=== PATIENT | female | born 1950 | race Caucasian/White ===

== ENCOUNTER 2024-04-08 13:45 | Outpatient (RCR) | payer MEDICARE, SELFPAY | END 2024-06-03 11:57 | disposition home or self-care (01) | PROVIDERS: PCP Family Medicine; Visit Provider Family Medicine | DX: M54.9 Dorsalgia, unspecified (principal); Z51.89 Encounter for other specified aftercare | CPT/HCPCS: 97110; 97140; 97161 ==

== ENCOUNTER 2025-02-25 13:00 | Outpatient (RCR) | payer MEDICARE, SELFPAY | END 2025-03-22 12:43 | disposition home or self-care (01) | PROVIDERS: PCP Family Medicine; Visit Provider Family Medicine | DX: M25.571 Pain in right ankle and joints of right foot (principal); G89.29 Other chronic pain; M76.61 Achilles tendinitis, right leg; Z51.89 Encounter for other specified aftercare | CPT/HCPCS: 97110; 97112; 97162; 97530 ==

== ENCOUNTER 2025-07-07 13:09 | Emergency (ER) | payer MEDICARE, SELFPAY ==
--- OUTSIDE RECORDS SUMMARY | 2025-07-07 13:11 | XMS_ITS | Clinical Summary ---
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 0 03/20/20 11 Active ascorbic acid (VITAMIN C) 500 mg tablet Take 1 tablet by mouth once daily. 0 03/20/20 11 Active loratadine (CLARITIN) 10 mg tabletIndications :Allergic Take 1 tablet by mouth once daily. 0 04/18/20 13 Active cholecalciferol, Vitamin D3, (Vitamin D-3) 5,000 unit tab tablet Take 1 Tablet (5,000 units) by mouth once daily. 0 02/16/20 22 Active Naproxen Na-pseudoephedrin e (Aleve Cold and Sinus) 220-120 mg [id number]:A llergy, sequela TAKE 1 TABLET BY MOUTH TWICE DAILY NEEDED 180 Tablet 05/04/20 22 Active medication order composer 2 times daily if needed (diarrhea). Imodium 262 mg tablets 02/07/20 24 Active acetaminophen (TYLENOL) 325 mg tabletIndications :Abnormal uterine bleeding due to endometrial polyp,Status post hysteroscopy Take 1-2 Tablets (325-650 mg) by mouth every 4 hours if needed (mild pain). Max acetaminophen dose: 4000mg in 24 hrs. 09/14/20 24 Active atorvastatin (LIPITOR) 40 mg tabletIndications :Mixed hyperlipidemia Take 1 Tablet (40 mg) by mouth at bedtime. 90 Tablet 3 12/31/19 25 Active levothyroxine (SYNTHROID) 88 mcg tabletIndications :Acquired hypothyroidism Take 1 Tablet (88 mcg) by mouth once daily. 90 Tablet 12/31/19 25 Active memantine (NAMENDA) 10 mg tabletIndications :Mild cognitive impairment Take 1 Tablet (10 mg) by mouth two times daily. 180 Tablet 12/31/19 25 Active triamterene-hydro chlorothiazide, 37.5-25 mg, (MAXZIDE-25) 37.5-25 mg tabletIndications :Essential hypertension TAKE 1 TABLET BY MOUTH IN THE MORNING 90 Tablet 3 12/31/19 25 Active liothyronine 5 mcg tabletIndications :Major depressive disorder, recurrent, moderate (HC) TAKE 1 TABLET BY MOUTH IN THE MORNING & 1 TABLET AT 3:00/4:00 PM. 180 Tablet 3 01/19/20 25 Active sertraline 100 mg tabletIndications :Major depressive disorder, recurrent, moderate (HC) Take 1 Tablet (100 mg) by mouth once daily. 90 Tablet 3 02/27/20 25 Active sertraline 50 mg tabletIndications :Major depressive disorder, recurrent, moderate (HC) Take 1 Tablet (50 mg) by mouth once daily. Take with a 100 mg tablet for a total of 150 mg daily 90 Tablet 3 02/27/20 25 Active gabapentin 300 mg capsuleIndication s:RLS (restless legs syndrome) Take 2 Capsules (600 mg) by mouth at bedtime. 180 Capsule 2 04/02/20 25 Active fluticasone (50 mcg per actuation) nasal solution (FLONASE)Indicati ons:Allergy, subsequent encounter SHAKE LIQUID AND USE 1 TO 2 SPRAYS IN BOTH NOSTRILS DAILY 48 g 2 04/15/20 25 Active nystatin 100,000 unit/g ointmentIndicatio ns:Yeast infection Apply topically to affected area(s) two times daily. To the skin of the perineum from vagina to anus 30 g 1 04/16/20 25 Active montelukast (SINGULAIR) 10 mg tabletIndications :Allergy, subsequent encounter Take 1 tablet by mouth at bedtime 90 Tablet 05/21/20 25 Active glipiZIDE extended-release (GLUCOTROL XL) 10 mg Extended-Release tabletIndications :Controlled type 2 diabetes mellitus with complication, without long-term current use of insulin (HC) Take 1 tablet by mouth every day before a meal 90 Tablet 05/21/20 25 Active omeprazole (PRILOSEC) 20 mg Delayed-Release capsuleIndication s:Gastroesophagea l reflux disease without esophagitis Take 1 Capsule (20 mg) by mouth once daily before a meal. 90 Capsule 1 06/15/20 25 Active omeprazole (PRILOSEC) 20 mg Delayed-Release capsuleIndication s:Gastroesophagea l reflux disease without esophagitis TAKE 1 CAPSULE BY MOUTH ONCE DAILY BEFORE A MEAL 90 Capsule 3 08/13/20 24 025 Discontin ued(*Avai lability/ Formulary change/Co st of medicatio n) Active Problems Problem Noted Date Diagnosed Date Status post hysteroscopy 08/202409/14/2024 Allergies 04/13/2024 Type 2 diabetes mellitus wit h other specified complication, without long-term current use of insulin 12/24/2023 Obesity, morbid 04/12/2023 Hoarding disorder 03/25/2023 Major neurocognitive disorde r possibly due to Alzheimer disease, without behavioral disturbance 03/25/2023 Major depressive disorder, recurrent, moderate 1 11/11/2021 Unspecified hypothyroidism 09/16/2009 Unspecified essential hypertension 11/12/2007 Mixed hyperlipidemia 11/12/2007 Esophageal reflux 11/12/2007 Resolved Problems Problem Noted Date Diagnosed Date Resolved Date Abnormal uterine bleeding du e to endometrial polyp 09/14/2024 12/30/2024 Thickened endometrium 07/29/20242024 Vaginitis 12/18/2023 12/30/2024 Acute urinary tract infection 11/25/2023 12/30/2024 Strain of right trapezius muscle 11/10/2023 12/30/2024 Personality disorder, unspecified 10/03/2018 08/13/2024 Recurrent depression 06/06/2018 022 Controlled type 2 diabetes m nicholitus with complication, without long-term current use of insulin 08/30/2016 05/07/2024 Morbid obesity due to excess calories 08/30/2016 10/06/2020 Major depressive disorder, r ecurrent episode, unspecified 03/29/2009 12/20/2011 Obesity, unspecified 11/12/2007 024 Nonspecific abnormal results of thyroid function study 11/12/2007 09/16/2009 DIABETES 09/11/2002 08/30/2016 Major depressive disorder, r ecurrent episode, moderate 06/06/2018 Encounters Date Type Department Care Team Description 07/07/2025 Nurse Triage [facility] [address] [place] [address] Yunior Martin MD Dizzy (Complaining of dizziness this am but no dizziness now) 07/07/2025 Travel 06/22/2025 Telephone [facility] [address] [place] [address] Yunior Martin MD Lab (Lab orders needed) 06/14/2025 Refill [facility] [address] [place] [address] Yunior Martin MD Refill Request (Omeprazole) 05/19/2025 Refill [facility] [address] [place] [address] Yunior Martin MD Refill Request (Montelukast, Glipizide Extended-release) 04/16/2025 6:45 PM CDT Office Visit [facility] [address] [phone] Bree Bobby PA Vaginal Itching (Vulvar) 04/16/2025 Travel 04/16/2025 Nurse Triage [facility] [address] [place] [address] Yunior Martin MD Vulvar swelling and itching 04/16/2025 Telephone [facility] [address] [place] [address] Robert Valle, DO Error-please disregard 04/14/2025 Refill [facility] [address] [place] [address] Yunior Martin MD Refill Request (Fluticasone (50 Mcg Per Actuation) Nasal) 04/12/2025 9:55 AM CDT Office Visit [facility] [address] [place] [address] Robert Valle, Urinary Problem (Urgency worse when feeling a bowel movement coming) 04/11/2025 Travel 04/08/2025 12:30 PM CDT Office Visit [facility] [address] [place] [phone] Asim Fleming PsyD, VERNA Individual Therapy; Trmt Plan 04/08/2025 Travel from Last 3 Months Immunizations Immunization Administration Dates Next Due COVID-19 VACCINE SPIKEVAX (M ODERNA 50MCG/0.5ML) 12YO+ PFS 12/24/2023,08/22/2023 COVID-19 vaccine (Moderna 100mcg/0.5mL) PF, MDV 03/10/2022,08/28/2021 COVID-19 vaccine (Pfizer-Bio NTech 30mcg/0.3mL) 12YO+ BIVALENT PF, MDV 04/12/2023,07/12/2022 Hepatitis B (Adult) 04/18/2017,08/30/2016,2014 Influenza A (H1N1), Inactiva sascha (Age >=3 Years) 11/02/2009 Influenza, High-dose Inactivated 07/31/2024,08/21,10/06/2015 Influenza, IIV3 (Age >=3 years) 07/10/20 13,06/20/2011,07/14/2009,08/18,11/12/2007 Influenza, Inactivated AIIV4 (Age 65+ Years) Preserv Free 08/22/2023,07/12/2022,08/02/2021,07/12 Influenza, Inactivated IIV3 (Age 65+ Years) Preserv Free 07/22/2019,10/03/2018,07/11/2017 Pneumococcal Conj 20-valent (Prevnar 20) 01/10/2023 Pneumococcal Poly,23-Valent (Pneumovax) 08/30/2016,05/05/2010 Pneumococcal conj 13-Valent (Prevnar 13) 11/15/2014 RSV, Recombinant ADJ Reconst ituted (Arexvy 120MCG/0.5mL) 09/15/2023 Td (Age >=7 Years) 03/06/2000 Tdap 07/31/2024,06/20/2011 Zoster (Shingrix-RZV, recombinant) 02/25/2024, Family History Medical History Relation Name Comments ADD / ADHD Brother 1 Alcoholism Brother 1 Diabetes Brother 1 ADD / ADHD Brother 2 Alcoholism Brother 2 Asthma Father Diabetes Father Heart failure Father Hyperlipidemia Father Hypertension Father Alcoholism Maternal Grandfather Alcoholism Maternal Uncle Allergies Mother Cancer Mother brain tumor Diabetes Mother Hyperlipidemia Mother Hypertension Mother Pulmonary embolism Mother on her le gs Cancer-breast Neg. 1 Cancer-ovarian Neg. 2 Cancer-colon Neg. 3 Anesthesia Problem No Family History Relation Name Status Comments Brother 1 Brother 2 Father Maternal Grandfather Maternal Uncle Mother Neg. 1 Neg. 2 Neg. 3 Social History Tobacco Use Types Packs/Day Years Used Date Smoking Tobacco: Never Passive Smoke Exposure: Yes Smokeless Tobacco: Never Tobacco Cessation:Counseling Given: No Comments:rare occasions Alcohol Use Standard Drinks/Week Comments Yes 0 (1 standard drink = 0.6 oz pur e alcohol) rare PHQ-2 Answer Date Recorded PHQ-2 TOTAL SCORE 2 02/26/2025 Social Connections Answer Date Recorded Do you often feel lonely or isolated from those around you? 0 04/16/2025 Alcohol Use Answer Date Recorded Frequency of Alcohol Consumption Not on file 09/11/2022 Average Number of Drinks Not on file 022 How often do you have five or more drinks on one occasion? 0 09/11/2022 Financial Resource Strain Answer Date R ecorded Difficulty of Paying Living Expenses 3 04/16/2025 Difficulty of Paying Living Expenses Not on file 04/16/2025 Food Insecurity Answer Date Recorded Do you worry your food will run out before you are able to buy more? 1 04/16/2025 Transportation Needs Answer Date Record ed Does lack of transportation keep you from medica l appointments? 1 04/16/2025 Does lack of transportation keep you from work, meetings or getting things that you need? 1 04/16/2025 Housing Stability Answer Date Recorded What is your housing situation today? 1 04/16/2025 Utilities Answer Date Recorded Do you have trouble paying f or utilities (for example, heat, electricity, water, phone)? 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 file Not on file Not on file Travel History Travel Start Travel End [place] 07/02/2025 07/06/2025 Obstetrics History Para Term AB IAB SAB Ectopic Multiple Livin g Live Births 2 2 2 2 Date Outcome GA Total Labor Labor/2nd/3rd Weight Sex Type Anes PTL Arleen A1 A5 Name Clin Term Term Last Filed Vital Signs Vital Sign Reading Time Taken Comments Blood Pressure 166/74 04/16/2025 6:49 PM CDT Pulse 69 04/16/2025 6:49 PM CDT Temperature 36.7 C (98 F) 04/16/2025 6:49 PM CDT Respiratory Rate 16 04/16/2025 6:49 PM CDT Oxygen Saturation 98% 04/16/2025 6:49 PM CDT Inhaled Oxygen Concentration - - Weight 105.2 kg (232 lb) 04/16/2025 6:49 PM CDT Height 154.9 cm (5' 1) 04/12/2025 10:12 AM CDT Body Mass Index 43.84 04/12/2025 10:12 AM CDT Plan of Treatment Upcoming Encounters Date Type Department Care Team (Late st Contact Info) Description 07/15/2025 7:15 AM CDT Orders Only [facility] [address] [address] [place] 07/19/2025 10:30 AM CDT Office Visit [facility] [address] [place] [address] Yunior Martin MD [address] [place] [address] 07/27/2025 12:30 PM CDT Office Visit [facility] [address] [place] [address] Medhat Lomeli MD [address] [place] [address] 08/04/2025 10:00 AM CDT Office Visit [facility] [address] [place] [phone] Asim Fleming PsyD, LP [address] [place] [address] Health Maintenance Due Date Last Done Comments Colonoscopy through age 75 1994 Medicare Wellness for age 65+ 04/14/2025, 04/12/2023, 10/06/2020 COVID-19 vaccine series ( season) 2025 07/31/2024, 12/24/2023, 08/22/2023, Additional history exists Influenza Vaccine (#1) 2025 , 08/22/2023, 07/12/2022, Additional history exists Depression screening for age 12+ 02/26/2026 02/26/2025, 08/18/2024, 08/13/2024, Additional history exists BMI (ht and wt on same day) for age 18+ 04/12/2026 04/12/2025, 08/18/2024, 07/29/2024, Additional history exists Lipids for age 45-75 12/28/2029 12/28/2024, 12/24/2023, 01/08/2023, Additional history exists Tetanus booster 07/31/2034 07/31/2024, 05/23, 03/06/2000 Hepatitis B series for 19+ Completed 04/18, 08/30/2016, 02/02/2015 Hepatitis C screening for ag e 18-79 Completed 10/06/2020 Pneumococcal series for age 50+ Completed 01/10/2023, 08/30/2016, 11/15/2014, Additional history exists RSV vaccine for adults or Completed 09/15/2023 Zoster (shingles) series for age 50+ Completed 02/25/2024, 09/15/2023 DEXA/DXA scan for age 65+ Completed 04/14/2024, Procedures Procedure Name Priority Date/Time Associated Diagnosis Comments URINE CULTURE Routine 04/12/2025 12:12 PM CDT Recurrent UTI (urinary tract infection) UA W/ SEDIMENT EXAM REFLEXED PER CRITERIA STAT 04/12/2025 11:23 AM CDT Urgency incontinence LIPID PANEL W REFLEX MEASURED LDL Routine 12/28/2024 11:24 AM CDT Controlled type 2 diabetes mellitus with complication, without long-term current use of insulin (HC) XR DXA BONE DENSITY 2 SITES AXIAL Routine 04/14/2024 11:24 AM CDT Post-menopausal ANTI HCV Routine 10/06/2020 4:15 PM 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 [facility] Urine URINE SPECIMEN / Unknown Non-Blood / Unknown 04/12/2025 12:12 PM CDT 04/12/2025 12:13 PM CDT us Robert Valle DO MICROBIOLOGY Final Result [employer] [facility] [address] [place] [address], [place] * (ABNORMAL) UA W/ SEDIMENT EXAM REFLEXED PER CRITERIA (04/12/2025 11:23 AM CDT) COLOR YELLOW YELLOW [facility] (Urgent Care) APPEARANCE CLEAR CLEAR [facility] ([facility]gent [facility]) SPECIFIC GRAVITY 1.020 1.001 - 1.035 [facility] (Urgent Care) PH 7.0 5.0 - 8.0 [facility] ([facility]) GLUCOSE NEGATIVE NEGATIVE [facility] (Urgent Care) BILIRUBIN NEGATIVE NEGATIVE [facility] (Urgent Care) KETONES NEGATIVE NEGATIVE [facility] (Urgent Care) OCCULT BLOOD NEGATIVE NEGATIVE [facility] ([facility]) PROTEIN NEGATIVE NEGATIVE [facility] ([facility]gent Care) NITRITE NEGATIVE NEGATIVE [facility] ([facility]) LEUKOCYTE ESTERASE TRACE(A) NEGATIVE [facility] ([facility]gent [facility]) WBC UA 10-20(A) < OR = 5 /HPF [facility] ([facility]gent [facility]) RBC UA NONE SEEN < OR = 2 /HPF [facility] (Urgent Care) SQUAMOUS EPITHELIAL CELLS UA NONE SEEN < OR = 5 /HPF [facility] (Urgent [facility]) BACTERIA UA MODERATE(A) NONE SEEN /HPF [facility] ([facility]) NOTE UA [facility] (Urgent Care) Comment: This urine was analyzed for the presence of WBC, RBC, bacteria, casts, and other formed elements. Only those elements seen were reported. Urine URINE SPECIMEN / Unknown 04/12/2025 11:23 AM CDT 04/12/2025 11:24 AM CDT Robert Valle DO URINE Final Result [facility] [address] [place] [address], [facility] [address] [place] [address] [facility] (Urgent Care) [address] [place] [phone] * (ABNORMAL) LIPID PANEL W REFLEX MEASURED LDL (12/28/2024 11:24 AM CDT) CHOLESTEROL, TOTAL 213(H) <200 mg/dL [facility] HDL CHOLESTEROL 60 > OR = 50 mg/dL [facility] TRIGLYCERIDES 99 <150 mg/dL [facility] LDL-CHOLESTEROL 132(H) mg/dL (calc) [facility] Comment: Reference range: <100 Desirable range <100 mg/dL for primary prevention; <70 mg/dL for patients with CHD or diabetic patients with > or = 2 CHD risk factors. LDL-C is now calculated using the Kamaljit calculation, which is a validated novel method providing better accuracy than the Friedewald equation in the estimation of LDL-C. Truman JENKINS et al. SALEEM. 2013;310(19): 7096-7738 (http://education.DealCircle/faq/NDP928) CHOL/HDLC RATIO 3.6 <5.0 (calc) [facility] NON HDL CHOLESTEROL 153(H) <130 mg/dL (calc) [facility] Comment: For patients with diabetes plus 1 major ASCVD risk factor, treating to a non-HDL-C goal of <100 mg/dL (LDL-C of <70 mg/dL) is considered a therapeutic option. Blood BLOOD SPECIMEN / Unknown 12/28/2024 11:24 AM CDT 12/28/2024 11:25 AM CDT us Yunior Martin MD CHEMISTRY Final Result [employer] [facility] [address] [place] [address], [email or web address] [address] [place] [address] * XR DXA BONE DENSITY 2 SITES AXIAL (04/14/2024 11:24 AM CDT) Anatomical Region Laterality Modality Spine, HIPS, HIPL, HIPR Other Impressions 04/18/2024 5:51 PM CDT Normal bone density. RECOMMENDATIONS: The National Osteoporosis Foundation recommends pharmacologic treatment for patients with T-scores of -2.5 or less, patients with prior history of fragility fractures, or patients with 10-year probability of greater than 3% at hips or greater than 20% of suffering major osteoporotic fractures. Recommend continued optimization of calcium and vitamin D intake through dietary means and/or supplementation and regular exercise. Repeat scan recommended in 3-5 years. Homa Vance PA-C [facility] 04/18/2024 Narrative 04/18/2024 5:51 PM CDT For Patients: Results are automatically released to your [facility] account once available, in compliance with federal regulations. This means that you may see your results before your provider has had a chance to review them. Please allow 2-3 business days for your provider to comment on the results. XR DXA Bone Mineral Density (BMD) EXAM LOCATION: [address] [address] PATIENT NAME: Margarita Grayson DATE OF : 1950 EXAM DATE: 04/14/2024 REQUESTING PROVIDER: Yunior Martin MD GENDER AT : female HEIGHT: 5' 0.83 (04/13/2024) WEIGHT: 244 lb 9.6 oz (04/13/2024) MENOPAUSAL STATUS: Postmenopausal RACE/ETHNICITY: White RISK FACTORS: White Race CURRENT MEDICATION FOR BONE LOSS: NONE INDICATION: Post-Menopause COMPARISON DATE(S): 2014 DXA scans are compared to prior studies for a patient only when the two (or more) studies were performed on the same scanner. It is not possible to compare data generated on one scanner to data from another because there are not standards in DXA equipment. This applies even if the two scanners are made by the same robotic machine tender production. PROCEDURE: Dual-energy x-ray absorptiometry performed with routine technique. Reporting is completed in the form of a T-score. The T-score represents the standard deviation from peak bone mass based on young healthy adult. A Z-score is used for diagnosis in premenopausal women, and for men under the age of 50. FINDINGS: RESULT LUMBAR SPINE L1 - L4 (L3) BMD: 1.385 g/cm2 T-Score: + 1.6 Z-Score: + 2.2 Change from prior in 2015: Decrease 3.8%. RESULTS FEMUR Left femoral neck BMD: 0.972 g/cm2 T-Score: - 0.5 Z-Score: + 0.7 Change from prior in 2015: Decrease 4.0%. Right femoral neck BMD: 0.927 g/cm2 T-Score: - 0.8 Z-Score: + 0.3 Change from prior in 2015: Decrease 3.5%. Left hip BMD: 1.094 g/cm2 T-Score: + 0.7 Z-Score: + 1.6 Change from prior in 2015: Decrease 6.3%. Right hip BMD: 1.072 g/cm2 T-Score: + 0.5 Z-Score: + 1.4 Change from prior in 2015: Decrease 6.8%. WHO criteria: Normal: T-score at or above -1 SD Osteopenia: T-score between -1.1 and -2.4 SD Osteoporosis: T-score at or below -2.5 SD us Yunior Martin MD DEXA Final Result * ANTI HCV (10/06/2020 4:15 PM EXECUTIVE WELLNESS PROGRAMS DIRECTOR) HEPATITIS C ANTIBODY Non-React naila Non-React naila 10/07/2020 5:32 PM EXECUTIVE WELLNESS PROGRAMS DIRECTOR [facility] Comment:Antibodies to HCV no t detected; does not exclude the possibility of exposure to HCV. Blood BLOOD SPECIMEN / Unknown Venipuncture / Unknown 10/06/2020 4:15 PM EXECUTIVE WELLNESS PROGRAMS DIRECTOR 10/06/2020 4:20 PM EXECUTIVE WELLNESS PROGRAMS DIRECTOR us Yunior Martin MD SEND OUTS Final Result [facility] 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
[2025-07-07 13:13] VITALS: BP 131/72; PULSE 62; RESP 16; TEMP 36.4; O2SAT 95; BMI 41.2
--- NOTE | 2025-07-07 15:03 | ED.DIZZY ---
HPI - Dizziness General Chief Complaint: Dizziness/Vertigo Stated Complaint: Dizzinness Time Seen by Provider: 07/07/25 14:52 History of Present Illness HPI Narrative: This 74-year-old female comes in with her because of an episode of dizziness upon arising this morning. She clarifies the dizziness to mean vertigo symptoms. She states that she stood up and felt like the room was moving left and right. When remaining still these symptoms are completely absent. She did go to an appointment and was sent here for further evaluation. She does not report any speech change or unilateral weakness. She did not have any nausea or vomiting. She does not report any hearing changes. Related Data Home Medications ?Medication ?Instructions ?Recorded ?Confirmed ascorbate calcium (vitamin C) PO 07/07/25 07/07/25 atorvastatin 40 mg tablet 40 mg PO DAILY 07/07/25 07/07/25 fluticasone propionate 50 spray intranasal 07/07/25 07/07/25 mcg/actuation nasal spray,suspension gabapentin 300 mg capsule mg PO 07/07/25 07/07/25 glipizide 10 mg tablet, extended 10 mg PO DAILY 07/07/25 07/07/25 release 24 hr levothyroxine 88 mcg tablet 88 mcg PO DAILY 07/07/25 07/07/25 liothyronine 5 mcg tablet 5 mcg PO BID 07/07/25 07/07/25 loperamide [Imodium A-D] PO 07/07/25 07/07/25 loratadine [Claritin] PO 07/07/25 07/07/25 memantine 10 mg tablet 10 mg PO BID 07/07/25 07/07/25 montelukast 10 mg tablet 10 mg PO DAILY 07/07/25 07/07/25 naproxen sodium [Aleve] PO 07/07/25 07/07/25 nystatin 100,000 unit/gram topical topical BID 07/07/25 07/07/25 ointment omeprazole 20 mg capsule,delayed 20 mg PO DAILY 07/07/25 07/07/25 release sertraline 50 mg tablet 50 mg PO DAILY 07/07/25 07/07/25 triamterene 37.5 1 tab PO DAILY 07/07/25 07/07/25 mg-hydrochlorothiazide 25 mg tablet Previous Rx's ?Medication ?Instructions ?Recorded meclizine 25 mg tablet 25 mg PO QID #20 tabs 07/07/25 Allergies Allergy/AdvReac Type Severity Reaction Status Date / Time donepezil (From Aricept) Allergy Verified 07/07/25 13:13 formaldehyde Allergy Verified 07/07/25 13:13 phenolsulfonic acid Allergy Uncoded 07/07/25 12:42 Review of Systems Status of ROS: Reports: 10 or more systems reviewed and unremarkable except as noted in History and below Narrative: Constitutional: No fevers, no weight gain or loss. Eyes: No discharge. No vision changes. HENT: No congestion, no sore throat, no ear pain. Cardiovascular: No chest pain, no palpitations. Respiratory: No shortness of breath, no wheezes, no cough. Gastrointestinal: No abdominal pain, no vomiting, no diarrhea. Genitourinary: No dysuria, no hematuria. Musculoskeletal: Normal range of motion. Skin: No rashes, no pruritis. Neurological: No weakness, sensory change, speech change. Vertigo symptoms as described above. Endo/Heme/Allergies: No bruising or bleeding. No polydipsia. Pysch: no suicidality, no anxiety, no insomnia. All other systems reviewed and are negative. Exam Narrative: Exam Narrative: Constitutional: Well-developed, well-nourished, no acute distress. HEENT: Normocephalic, atraumatic. Neck: Normal range of motion. Nontender. Supple. Heart: Regular. No murmurs. Normal rate. Intact distal pulses. Lungs: Clear to auscultation. No chest discomfort. No wheezes, rhonchi, or rales. Abdomen: Normal bowel sounds. Nontender. No rebound tenderness. Genitalia: Deferred. Back: No midline tenderness. Normal range of motion. Extremities: Normal range of motion. No injury. Skin: Intact. No rash. Warm. No erythema or pallor. Neurologic: No altered sensation. No weakness. Alert and oriented. No nystagmus or vertigo symptoms currently. Psychiatric: No suicidality. No anxiety or depression. No insomnia. Nursing notes and vitals signs are reviewed. Const: Vital Signs, click to edit/add: Vital Signs - 24 hr 07/07/25 13:13 Temperature 97.5 F L Pulse Rate [Pulse Oximeter] 62 Respiratory Rate 16 Blood Pressure [Ri ght Upper Arm] 131/72 Pulse Oximetry 95 Oxygen Delivery Me thod Room Air Course Vital Signs Vital signs: Initial Vital Signs Temperature 97.5 F L 07/07/25 13:13 Temperature Source Temporal Artery Scan 07/07/25 13:13 Pulse Rate 62 07/07/25 13:13 Respiratory Rate 16 07/07/25 13:13 Blood Pressure 131/72 07/07/25 13:13 Blood Pressure Mean 91 07/07/25 13:13 Blood Pressure Position Sitting 07/07/25 13:13 Pulse Oximetry 95 07/07/25 13:13 Oxygen Delivery Method Room Air 07/07/25 13:13 Vital Signs Temperature 97.5 F L 07/07/25 13:13 Pulse Rate 62 07/07/25 13:13 Respiratory Rate 16 07/07/25 13:13 Blood Pressure 131/72 07/07/25 13:13 Pulse Oximetry 95 07/07/25 13:13 Oxygen Delivery Method Room Air 07/07/25 13:13 Temperature 97.5 F L 07/07/25 13:13 Pulse Rate 62 07/07/25 13:13 Respiratory Rate 16 07/07/25 13:13 Blood Pressure 131/72 07/07/25 13:13 Pulse Oximetry 95 07/07/25 13:13 Oxygen Delivery Method Room Air 07/07/25 13:13 MDM - Dizziness MDM Narrative Medical decision making narrative: This patient comes in with vertigo symptoms as described above. She is feeling much better and does not report any symptoms currently. She is not showing any sign of central process for these symptoms. I did discuss lab and imaging options but indicated that these will all be normal with a diagnosis of peripheral vertigo. The patient did receive an oral dose of meclizine. She is able to get up and ambulate and typically uses hand crutches any way. Did provide a prescription for meclizine. Discharge Plan Discharge Clinical Impression: Acute vestibular neuronitis Patient Disposition: Home w/ Parent or Adult Condition: Improved Additional Instructions: Take medication as needed and directed. Activity as tolerated. Continue current plans otherwise as before. Follow up with MD as scheduled or return if worsening. Prescriptions: New meclizine 25 mg tablet 25 mg PO QID Qty: 20 0RF No Action atorvastatin 40 mg tablet 40 mg PO DAILY nystatin 100,000 unit/gram ointment topical BID glipizide 10 mg tablet extended release 24hr 10 mg PO DAILY liothyronine 5 mcg tablet 5 mcg PO BID levothyroxine 88 mcg tablet 88 mcg PO DAILY gabapentin 300 mg capsule PO triamterene-hydrochlorothiazid 37.5-25 mg tablet 1 tab PO DAILY omeprazole 20 mg capsule,delayed release(DR/EC) 20 mg PO DAILY montelukast 10 mg tablet 10 mg PO DAILY fluticasone propionate 50 mcg/actuation spray,suspension intranasal sertraline 50 mg tablet 50 mg PO DAILY memantine 10 mg tablet 10 mg PO BID ascorbate calcium (vitamin C) PO loperamide [Imodium A-D] PO loratadine [Claritin] PO naproxen sodium [Aleve] PO Follow Up/Referrals: Yunior Martin MD [Primary Care Provider, Family Practice] Stand Alone Forms: [facility] Info Instructions
[2025-07-07] MEDS: MECLIZINE HCL 25 MG TABLET PO (15:12)
== END 2025-07-07 15:41 | disposition home or self-care (01) ==
LOC: ED 15:23
PROVIDERS: Emergency Provider Emergency Medicine Emergency Medical Services; PCP Family Medicine
DX: H81.23 Vestibular neuronitis, bilateral (principal)
CPT/HCPCS: 99283; 99284; A9270